=== PATIENT | female | born 1985 | race Asian ===

== ENCOUNTER 2017-07-06 08:01 | Emergency (ER) | payer OTHER ==
[~2017-07-06] VITALS: Ht 152.4 cm; Wt 51.5 kg
[2017-07-06 08:02] VITALS: BP 113/73; PULSE 81; RESP 18; TEMP 98; O2SAT 100
[2017-07-06 08:48] LABS: AUTOMATED NEUTROPHIL # 4.2 TH/MM3 (1.8-7.7); BASOPHIL % 0.5 % (0.0-2.0); EOSINOPHIL # 0.2 TH/MM3 (0-0.4); EOSINOPHIL % 3.5 % (0.0-4.0); HEMATOCRIT 38.4 % (35.0-46.0); HEMO FLAGS DIFF FINAL; LYMPH % 25.1 % (9.0-44.0); LYMPHOCYTE # 1.6 TH/MM3 (1.0-4.8); MEAN CELL VOLUME 90.4 FL (80.0-100.0); MEAN CORPUSCULAR HEMOGLOBIN 30.8 PG (27.0-34.0); MEAN CORPUSCULAR HGB CONC 34.1 % (32.0-36.0); MONO % 6.3 % (0.0-8.0); NEUT % 64.6 % (16.0-70.0); PLATELET COUNT 269 TH/MM3 (150-450); RED BLOOD COUNT 4.25 MIL/MM3 (4.00-5.30); RED CELL DISTRIBUTION WIDTH 12.9 % (11.6-17.2); WHITE BLOOD COUNT 6.4 TH/MM3 (4.0-11.0)
[2017-07-06 08:50] LABS: BACTERIA, URINE RARE /hpf; BLOOD, URINE MOD (NEG); COMMENT (UR) CULT NOT INDICATED; CULTURE IF INDICATED CULT NOT INDICATED; GLUCOSE,URINE NEG (NEG); KETONE, URINE NEG (NEG); MUCUS URINE FEW /lpf (OCC); NITRITE,URINE NEG (NEG); SQUAMOUS EPITHELIAL CELL URINE 3 /hpf (0-5); URINE COLOR LIGHT-YELLOW (YELLW/STRAW)
[2017-07-06] MEDS ORDERED: SODIUM CHLORIDE 0.9% FLUSH 10 ML FLUSH IVF PRN (09:15)
[2017-07-06] MEDS ORDERED: SODIUM CHLOR 0.9% 1000 ML INJ 1,000 ML IV ONE (09:15)
[2017-07-06 09:31] LABS: BETA HCG QUANT 1176 MIU/ML (0-5)
[2017-07-06 09:36] VITALS: BP 115/60; PULSE 76; RESP 18; TEMP 97.7; O2SAT 100
--- NOTE | 2017-07-06 09:41 | PD ---
HPI Chief Complaint: Related Problem Time Seen by Provider: 09:09 Travel History International Travel<30 days: No Contact w/Intl Traveler<30days: No Traveled to known affect area: No History of Present Illness HPI Patient is a [id number], presents to emergency room with complaints of irregular vaginal bleeding. Patient reports that she is about 6 weeks , reports that her first day of her last menstrual period was May 23, 2017. Patient reports that she began to have vaginal spotting 3 days ago, reports associated lower abdominal cramping with this. Patient reports that she is concerned for possible miscarriage. Patient reports that she has not seen an [facility] ARTIST yet, she does have an appointment on Wednesday with 1. Patient reports that she has never had a miscarriage in the past, she has delivered 2 full-term babies in the past. Patient with no nausea or vomiting, no fever or chills, no discharge. Patient with no other complaints at this time. PFSH Past Medical History Medical History: Denies Significant Hx Past Surgical History Surgical History: No Previous Surgery Social History Alcohol Use: No Tobacco Use: No Substance Use: No Allergies-Medications (Allergen,Severity, Reaction): Coded Allergies: No Known Allergies (Unverified , 07/06/17) Reported Meds & Prescriptions Reported Meds & Active Scripts Active No Active Prescriptions or Reported Medications Review of Systems General / Constitutional: No: Fever Eyes: No: Visual changes HENT: No: Headaches Cardiovascular: No: Chest Pain or Discomfort Respiratory: No: Shortness of Breath Gastrointestinal: No: Nausea, Vomiting, Diarrhea, Abdominal Pain Genitourinary: Positive: Vaginal Bleeding, No: Dysuria, Nocturia, Hematuria, Pelvic Pain, Flank Pain Musculoskeletal: No: Pain Skin: No Rash Neurologic: No: Weakness Psychiatric: No: Depression Endocrine: No: Polydipsia Hematologic/Lymphatic: No: Easy Bruising Physical Exam Narrative GENERAL: Mild distress SKIN: Focused skin assessment warm/dry. HEAD: Atraumatic. Normocephalic. EYES: Pupils equal and round. No scleral icterus. No injection or drainage. ENT: No nasal bleeding or discharge. Mucous membranes pink and moist. NECK: Trachea midline. No JVD. CARDIOVASCULAR: Regular rate and rhythm. No murmur appreciated. RESPIRATORY: No accessory muscle use. Clear to auscultation. Breath sounds equal bilaterally. GASTROINTESTINAL: Abdomen soft, non-tender, nondistended. Hepatic and splenic margins not palpable. MUSCULOSKELETAL: No obvious deformities. No clubbing. No cyanosis. No edema. NEUROLOGICAL: Awake and alert. Motor grossly within normal limits. Normal speech. PSYCHIATRIC: Appropriate mood and affect; insight and judgment normal. Data Data Last Documented VS Vital Signs Date Time Temp Pulse Resp B/P (MAP) Pulse Ox O2 Delivery O2 Flow Rate FiO2 07/06/17 09:36 97.7 76 18 115/60 (78) 100 Room Air Orders Orders Complete Blood Count With Diff (07/06/17 08:17) Beta Hcg (Quant/Titer) (07/06/17 08:17) Iv Access Insert/Monitor (07/06/17 08:17) Ed Urine Pregnancytest Poc (07/06/17 08:17) Urinalysis - C+S If Indicated (07/06/17 08:17) Basic Metabolic Panel (Bmp) (07/06/17 09:15) Complete Rh (07/06/17 09:15) Type And Screen (07/06/17 09:15) Us Pelvis (Ques Pr/Ect)W Trans (07/06/17 ) Sodium Chloride 0.9% Flush (Ns Flush) (07/06/17 09:15) Sodium Chlor 0.9% 1000 Ml Inj (Ns 1000 M (07/06/17 09:15) Labs Laboratory Tests Test 07/06/17 08:22 07/06/17 09:40 White Blood Count 6.4 TH/MM3 Red Blood Count 4.25 MIL/MM3 Hemoglobin 13.1 GM/DL Hematocrit 38.4 % Mean Corpuscular Volume 90.4 FL Mean Corpuscular Hemoglobin 30.8 PG Mean Corpuscular Hemoglobin Concent 34.1 % Red Cell Distribution Width 12.9 % Platelet Count 269 TH/MM3 Mean Platelet Volume 6.9 FL Neutrophils (%) (Auto) 64.6 % Lymphocytes (%) (Auto) 25.1 % Monocytes (%) (Auto) 6.3 % Eosinophils (%) (Auto) 3.5 % Basophils (%) (Auto) 0.5 % Neutrophils # (Auto) 4.2 TH/MM3 Lymphocytes # (Auto) 1.6 TH/MM3 Monocytes # (Auto) 0.4 TH/MM3 Eosinophils # (Auto) 0.2 TH/MM3 Basophils # (Auto) 0.0 TH/MM3 CBC Comment DIFF FINAL Differential Comment Urine Color LIGHT-YELLOW Urine Turbidity CLEAR Urine pH 7.0 Urine Specific Sweet 1.013 Urine Protein NEG mg/dL Urine Glucose (UA) NEG mg/dL Urine Ketones NEG mg/dL Urine Occult Blood MOD Urine Nitrite NEG Urine Bilirubin NEG Urine Urobilinogen LESS THAN 2.0 MG/DL Urine Leukocyte Esterase NEG Urine RBC 1 /hpf Urine WBC 3 /hpf Urine Squamous Epithelial Cells 3 /hpf Urine Bacteria RARE /hpf Urine Mucus FEW /lpf Microscopic Urinalysis Comment CULT NOT INDICATED Human Chorionic Gonadotropin, Quant 1176 MIU/ML Blood Urea Nitrogen 10 MG/DL Creatinine 0.54 MG/DL Random Glucose 79 MG/DL Calcium Level 8.9 MG/DL Sodium Level 137 MEQ/L Potassium Level 4.8 MEQ/L Chloride Level 105 MEQ/L Carbon Dioxide Level 26.8 MEQ/L Anion Gap 5 MEQ/L Estimat Glomerular Filtration Rate 131 ML/MIN MDM Medical Decision Making Medical Screen Exam Complete: Yes Emergency Medical Condition: Yes Medical Record Reviewed: Yes Interpretation(s) Vital Signs Date Time Temp Pulse Resp B/P (MAP) Pulse Ox O2 Delivery O2 Flow Rate FiO2 07/06/17 09:34 18 07/06/17 08:02 98.0 81 18 113/73 (86) 100 Room Air Differential Diagnosis Threatened miscarriage, early with vaginal bleeding, spontaneous miscarriage Narrative Course Patient is a A0 L2 who presents to emergency room 6 weeks with complaints of irregular vaginal bleeding/spotting for the past 3 days. Patient is nontoxic and evaluation, plan to obtain blood work including type and screen and pelvic ultrasound, hCG Quant ordered. During the course of the patients emergency department visit, the patients history, examination, and differential diagnosis were reviewed with the patient. The patient was placed on a engine monitor with oximetry and frequent blood pressure monitoring. The patient had an IV access obtained and blood work sent for analysis. The patient was initially provided IV fluids. The patients laboratory studies were reviewed and remarkable for: Laboratory Tests Test 07/06/17 08:22 07/06/17 09:40 White Blood Count 6.4 TH/MM3 (4.0-11.0) Red Blood Count 4.25 MIL/MM3 (4.00-5.30) Hemoglobin 13.1 GM/DL (11.6-15.3) Hematocrit 38.4 % (35.0-46.0) Mean Corpuscular Volume 90.4 FL (80.0-100.0) Mean Corpuscular Hemoglobin 30.8 PG (27.0-34.0) Mean Corpuscular Hemoglobin Concent 34.1 % (32.0-36.0) Red Cell Distribution Width 12.9 % (11.6-17.2) Platelet Count 269 TH/MM3 (150-450) Mean Platelet Volume 6.9 FL (7.0-11.0) Neutrophils (%) (Auto) 64.6 % (16.0-70.0) Lymphocytes (%) (Auto) 25.1 % (9.0-44.0) Monocytes (%) (Auto) 6.3 % (0.0-8.0) Eosinophils (%) (Auto) 3.5 % (0.0-4.0) Basophils (%) (Auto) 0.5 % (0.0-2.0) Neutrophils # (Auto) 4.2 TH/MM3 (1.8-7.7) Lymphocytes # (Auto) 1.6 TH/MM3 (1.0-4.8) Monocytes # (Auto) 0.4 TH/MM3 (0-0.9) Eosinophils # (Auto) 0.2 TH/MM3 (0-0.4) Basophils # (Auto) 0.0 TH/MM3 (0-0.2) CBC Comment DIFF FINAL Differential Comment Urine Color LIGHT-YELLOW (YELLW/STRAW) Urine Turbidity CLEAR (CLEAR) Urine pH 7.0 (5.0-8.5) Urine Specific Sweet 1.013 (1.002-1.035) Urine Protein NEG mg/dL (NEG-TRACE) Urine Glucose (UA) NEG mg/dL (NEG) Urine Ketones NEG mg/dL (NEG) Urine Occult Blood MOD (NEG) Urine Nitrite NEG (NEG) Urine Bilirubin NEG (NEG) Urine Urobilinogen LESS THAN 2.0 MG/DL (LESS Urine Leukocyte Esterase NEG (NEG) Urine RBC 1 /hpf (0-3) Urine WBC 3 /hpf (0-5) Urine Squamous Epithelial Cells 3 /hpf (0-5) Urine Bacteria RARE /hpf (NONE) Urine Mucus FEW /lpf (OCC) Microscopic Urinalysis Comment CULT NOT INDICATED Human Chorionic Gonadotropin, Quant 1176 MIU/ML (0-5) Blood Urea Nitrogen 10 MG/DL (7-18) Creatinine 0.54 MG/DL (0.50-1.00) Random Glucose 79 MG/DL (74-106) Calcium Level 8.9 MG/DL (8.5-10.1) Sodium Level 137 MEQ/L (136-145) Potassium Level 4.8 MEQ/L (3.5-5.1) Chloride Level 105 MEQ/L (98-107) Carbon Dioxide Level 26.8 MEQ/L (21.0-32.0) Anion Gap 5 MEQ/L (5-15) Estimat Glomerular Filtration Rate 131 ML/MIN (>89) HCG Quant 1176 Radiology studies were reviewed and remarkable for: Last Impressions Pelvis Ultrasound 07/06/17 0000 Signed Impressions: Service Date/Time: Thursday, July 06, 2017 09:44 - CONCLUSION: Empty uterus with beta above thousand probably in progress. Close followup is suggested. Don Aguila MD FACR Patient with most likely impending miscarriage given her empty uterus with a beta hCG of 1176. Reviewed all studies as well as all lab work with patient in detail. Patient understands needs to follow-up with her [facility]IST on Wednesday as scheduled, she also understands need for repeat hCG Quant as this number should trend to 0. She'll have a repeat hCG Quant in 48 hours.. Signs and symptoms of when to return to the emergency room was reviewed patient in detail. Patient will be given a copy of her lab work and studies at discharge. Diagnosis Primary Impression: Bleeding in early Additional Impression: Miscarriage, threatened, early Referrals: Roopa Coughlin MD Patient Instructions: General Instructions Additional Instructions: Please provide patient with a copy of their lab work and studies at discharge* * Please follow up with your primary care doctor in 2-3 days Return to the ER if symptoms worsen or progress Return to the ER as needed Your HCG quant is 1176, this number will need to be repeated in 2 days Please bring your discharge paper work to your career and guidance counselor's office appointment on Wednesday for follow up on all studies from today Pelvic rest until you're seen and cleared by your M[facility] ARTIST Scripts No Active Prescriptions or Reported Meds Disposition: DISCHARGE HOME Condition: Stable Grace Weir DO Jul 06, 2017 09:41
[2017-07-06 10:12] LABS: BICARBONATE 26.8 MEQ/L (21.0-32.0)
[2017-07-06 10:13] LABS: POTASSIUM 4.8 MEQ/L (3.5-5.1)
--- NOTE | 2017-07-06 10:18 | RADRPT ---
EXAM DATE/TIME: 07/06/2017 09:44 [facility] COMPARISON: No previous studies available for comparison. INDICATIONS : Pelvic bleeding. LAB(S): Beta-hC MEDICAL HISTORY : . Pelvic bleeding. SURGICAL HISTORY : None. ENCOUNTER: Initial ACUITY: 3 days PAIN SCORE: 3/10 LOCATION: Bilateral pelvis MEASUREMENTS: UTERUS: 9.8 x 7.2 x 4.8 cm ENDOMETRIAL STRIPE: 15 mm RIGHT OVARY: 2.9 x 1.6 x 2.3 cm LEFT OVARY: 4.3 x 2.8 x 2.2 cm CROWN RUMP LENGTH: not seen = WKS DAYS FHR: not seen BPM FINDINGS: UTERUS: Endometrium is prominent without proximal of conception. RIGHT OVARY: Ovary contains no mass or significant cystic lesion. LEFT OVARY: Complex 2 portions there are cystic mass left ovary MISCELLANEOUS: No free fluid. CONCLUSION: Empty uterus with beta above thousand probably in progress. Close followup is suggested. Don Aguila MD FACR on July 06, 2017 at 10:14 Board Certified Radiologist. This report was verified electronically.
[2017-07-06 11:53] VITALS: BP 112/89; PULSE 78; RESP 16; O2SAT 99
== END 2017-07-06 12:16 | disposition home or self-care (01) ==
LOC: NEPD 08:01 → EDBD 08:01 → NEPD 12:16
DX: O20.0 Threatened abortion (principal); O46.91 Antepartum hemorrhage, unspecified, first trimester; Z3A.01 Less than 8 weeks gestation of pregnancy
CPT/HCPCS: 76700; 76817; 80048; 81001; 84702; 84703; 85025; 86850; 86900; 86901; 99284; J7030